=== PATIENT | female | born 1930 | race Two or more races ===

== ENCOUNTER 2017-11-03 00:05 | Emergency (ER) | payer MEDICARE, MEDICAID ==
[~2017-11-03] VITALS: Ht 162.6 cm; Wt 59.0 kg
[2017-11-03] MEDS ORDERED: HYDR12.58 PO (00:41)
[2017-11-03] MEDS ORDERED: SODIUM CHLORIDE 0.9% 1,000ML IVBOLUS ONE (01:00)
[2017-11-03] MEDS ORDERED: SODIUM CHLORIDE FLUSH 10ML SYR IVF ONE (01:00)
[2017-11-03 01:07] LABS: HEMATOCRIT 38.2 % (34.6-47.8); HEMOGLOBIN 12.7 g/dL (11.7-16.4); WHITE BLOOD COUNT 7.2 x10^3/uL (3.4-10)
[2017-11-03 01:20] LABS: ASPARTATE AMINO TRANSFERASE 18 U/L (15-37); BLOOD UREA NITROGEN 19 mg/dL (7-18)
[2017-11-03 01:25] LABS: IS PT STATUS REG ER OR PRE ER? YES
[2017-11-03] MEDS ORDERED: ONDANSETRON 2MG/ML, 2ML ONE (01:29)
[2017-11-03] MEDS ORDERED: ONDANSETRON 2MG/ML, 2ML IVPush ONE (02:00)
[2017-11-03] MEDS ORDERED: SODIUM CHLORIDE 0.9% 1,000 ML IV SCH (03:28)
[2017-11-03] MEDS ORDERED: ONDANSETRON 2MG/ML, 2ML IVPush PRN (03:30)
[2017-11-03] MEDS ORDERED: ACETAMINOPHEN 325 MG TABLET PO PRN (03:30)
[2017-11-03] MEDS ORDERED: POTASSIUM CHLORIDE 20 MEQ TAB.ER.PRT PO ONE (03:30)
[2017-11-03] MEDS ORDERED: POTASSIUM CHLORIDE 20 MEQ TAB.ER.PRT ONE (04:44)
[2017-11-03 12:00] VITALS: BP 164/76
[2017-11-03] MEDS ORDERED: FLU VACCINE PER PHARMACY IM ONE (12:00)
[2017-11-03] MEDS ORDERED: FLU VACC QS2017-18 (36MOS+) UP/PF 0.5 ML IM-VACC ONE (12:30)
== END 2017-11-03 12:10 | disposition home or self-care (01) ==
LOC: ED 02:54 → UNDOADMIN 03:06 → EDIP 03:06 → ED 12:10
DX: R55 Syncope and collapse (principal); E86.0 Dehydration; R11.0 Nausea; I10 Essential (primary) hypertension
CPT/HCPCS: 36415; 71010; 80053; 83880; 84484; 85025; 93005; 93306; 96361; 96372; 96374; 99285; J2405; J7030